=== PATIENT | male | born 1950 | race Hispanic/Latino ===

== ENCOUNTER 2024-05-31 08:12 | Emergency (ER) | payer SELFPAY ==
[2024-05-31 08:16] VITALS: BP 203/92
--- NOTE | 2024-05-31 09:06 | ED.GENMED ---
History of Present Illness
General
Chief Complaint: Cold/Flu/URI Symptoms
Source: patient
Time Seen by Provider: 05/31/24 08:46
History of Present Illness
History of Present Illness:
73yoM with a history of hypertension not compliant with medication presenting for evaluation of flu-like symptoms x 1 day. Patient is Wallisian speaking and history obtained with the assistance of an skiff operator. He reports subjective fevers, chills,
and generalized body aches. He also reports difficulty urinating and states he is vomiting frequently in small amounts and does not feel like he completely voids. He also endorses nausea but denies vomiting. Additionally, he reports lower back and
abdominal discomfort. He was last seen in the ED in 2021 for a UTI.
Past History
Past History
ED Past Medical History: HTN and Other ( hernia, UTI, Headache, Renal calculus, BPH with urinary retention); Negative Asthma, Hypercholesterolemia or NIDDM
ED Past Surgical History: Urological (Right inguinal hernia repair and partial prostatectomy)
Social History
Tobacco: Non-smoker
Alcohol: None
Drug: None
Personal:
Living: with family
Employment: Not employed
Family History
Family History: Other (Noncontributory)
Phy Exam
General Physical Exam
General Presentation: well appearing and no apparent distress
General age: appears stated age
General Skin: warm and dry
General Habitus: elderly
General Mental: alert
General Hydration: appears well hydrated
ENT Exam
ENT Exam: pharynx normal and neck supple
Cardiovascular Exam
Cardiovascular Exam: regular rate/rhythm and no murmur
Pulmonary Exam
Pulmonary Exam: lungs clear, no respiratory distress, no crackles and no wheezing
Gastrointestinal Exam
Gastrointestinal Exam: non tender, soft and non distended
Skin Exam
Skin Exam: normal color and warm/dry
Psychiatric Exam
Psychiatric Exam: normal mood/affect
Course
Orders/Labs/Results
Orders:
Orders
05/31/24 09:06
CT Abd/pelvis W Iv Cont Urgent
Comment:
Reason For Exam: Lower abd/back pain, urinary symptoms, fever
0.9% Sodium Chloride 500 ml [Nss] 500 ml IV BOLUS
CR Chest - 2 Views Urgent
Comment:
Reason For Exam: Fever
05/31/24 09:11
COVID-19 Antigen Urgent
Source: Nasal Swab
Complete Blood Count/With Diff Urgent
Comprehensive Metabolic Panel Urgent
Lactate Level [Lactic Acid] Urgent
05/31/24 11:42
Urinalysis Reflex To Culture Urgent
Date Specimen was Collected: 05/31/24
Time Specimen was Collected: 11:41
Urine Culture Urgent
TITA Source: U
Specimen Description:
Date Specimen was Collected: 05/31/24
Time Specimen was Collected: 11:41
Comment: Add on per Gabriela Stahlilton
05/31/24 12:38
Add On - Microbiology Urgent
Tests Added?: Urine culture
05/31/24 12:40
Cefdinir [Omnicef] 300 mg PO NOW STA
Abnormal Lab Results
05/31/24
09:11
Hgb 12.4 L g/dL
(13.0-18.0)
Hct 38.0 L %
(39.0-52.0)
MCV 75.8 L fL
(80.0-94.0)
MCH 24.8 L pg
(27.0-31.0)
MCHC 32.6 L g/dL
(33.0-37.0)
MPV 11.4 H fL
(7.4-10.4)
Absolute Lymphs (auto) 0.6 L 10^3/uL
(1.2-3.4)
Absolute Monos (auto) 0.8 H 10^3/uL
(0.1-0.6)
Neutrophils % 78.3 H %
(42.2-75.2)
Lymphocytes % 8.8 L %
(20.5-51.1)
Monocytes % 11.3 H %
(1.7-9.3)
Glucose 101 H mg/dl
(70-99)
05/31/24 09:11
05/31/24 09:11
Vital Signs
Initial and Last Documented VS:
Initial Vital Signs
Temp Pulse Resp BP Pulse Ox
100.2 F 79 16 203/92 98
05/31/24 08:16 05/31/24 08:16 05/31/24 08:16 05/31/24 08:16 05/31/24 08:16
Last Documented Vital Signs
Temp Pulse Resp BP Pulse Ox
100.2 F 72 18 184/80 97
05/31/24 08:16 05/31/24 12:49 05/31/24 12:49 05/31/24 12:49 05/31/24 12:49
MDM/Problems Addressed
Differential Diagnosis Includes:
73yoM here with flu-like symptoms. C/o body aches, subjective fevers, difficulty urinating. Temperature 100.2 on arrival. Blood pressure 203/92. He is asymptomatic from this perspective. He admits to stopping his antihypertensive medications
several months ago. Remainder of vitals unremarkable. He is acutely nontoxic appearing. Exam is reassuring. Differential diagnosis includes but is not limited to: UTI, pyelonephritis, sepsis, intra-abdominal infection, viral illness
Initial ED plan: Check CBC, CMP, lactate, UA, COVID swab, chest x-ray, and CT abdomen. IV fluid bolus.
*Critical Care Note
Total Time (30-74mins, 75-104mins- exclusive of procedures): Not Applicable
Update Note
Update Note:
Labs overall unremarkable. White count and lactate are normal. Chest x-ray is clear and COVID-negative. CT abdomen shows evidence of cystitis as well as gastritis. Upon questioning, patient denies any symptoms of GERD. Surprisingly, UA is bland
without any overt evidence of infection. Given low-grade temperature, urinary symptoms, and cystitis on imaging, will cover with antibiotics. Urine culture added and he was started on a course of cefdinir. BP improved on reassessment. Patient was
given a 1 month refill of his lisinopril. Advised close PCP follow-up and ED return precautions discussed. Patient expressed understanding and is agreeable to plan. Patient discharged in stable condition.
ED Attending Note
-
Portions of this chart may have been created with voice recognition software.� Occasional wrong word or��sound alike� substitutions may have occurred due to the inherent limitations of voice recognition software.
Discharge Plan
Departure
Patient Disposition: Home (Routine Discharge)
Date of Disposition: 05/31/24
Time of Disposition: 12:38
Patient with high blood pressure during this ER visit?: Yes
Discharge Problem:
Cystitis, Hypertension
Instructions: Urinary Tract Infection, Adult ED
Prescriptions:
New
cefdinir 300 mg capsule
300 mg PO BID Qty: 13 0RF
lisinopril 10 mg tablet
10 mg PO DAILY Qty: 30 0RF
No Action
lisinopril 10 mg Tablet
10 mg PO DAILY
ibuprofen [Advil] 200 mg Tablet
600 mg PO Q6H PRN (Reason: pain)
acetaminophen [acetaminophen] 325 mg tablet
650 mg PO Q6HPRN PRN (Reason: mild pain) Qty: 14 0RF
ibuprofen 200 mg tablet
400 - 600 mg PO Q6HPRN PRN (Reason: moderate pain) Qty: 1 0RF
oxycodone 5 mg tablet
5 mg PO Q6HPRN PRN (Reason: breakthrough/severe pain) Qty: 8 0RF
Referrals:
[facility] [Provider Group]
UNKNOWN - PT DOES,NOT KNOW [Family Provider] -
Activity Restrictions/Additional Instructions:
Take antibiotics as prescribed. Drink plenty of fluids and rest. Restart lisinopril for your blood pressure.
Please follow-up with your family doctor. Return to the ER with any worsening symptoms.
Interventions
Interventions:
*Risk Screen - Suicide Last Done: 05/31/24 09:22
*Neglect/Abuse Screening Last Done: 05/31/24 09:22
*Nursing Disposition Last Done: 05/31/24 12:54
ED- Pulmonary Assessment Last Done: 05/31/24 09:22
Discharge Date and Time
Discharge Date/Time: 05/31/24 12:55
Print Language: AZERI
[2024-05-31 09:18] VITALS: BP 178/78; BMI 29.2
[2024-05-31] MEDS: NSS 500 IV (09:30)
[2024-05-31 09:41] LABS: ALT (SGPT) 27 U/L (0-50); AST (SGOT) 26 U/L (17-59); Albumin 3.9 g/dl (3.5-5.0); Alkaline Phosphatase 122 U/L (38-126); Blood Urea Nitrogen 16 mg/dl (9-20); Carbon Dioxide 26 mmol/L (22-30); Chloride 105 mmol/L (98-107); Estimated Creatinine Clearance 76 ml/min; Glucose 101 mg/dl (70-99); Sodium 138 mmol/L (135-145); Total Bilirubin 0.4 mg/dl (0.2-1.3); Total Protein 6.6 g/dl (6.3-8.2); eGFR > 60.00
[2024-05-31 09:49] LABS: COVID-19 Antigen Negative (Negative)
[2024-05-31 11:14] LABS: % Basophils 0.4 % (0-2); % Eosinophils 0.9 % (0-6); % Immature Granulocytes 0.3 % (0-0.5); % Lymphocytes 8.8 % (20.5-51.1); % Monocytes 11.3 % (1.7-9.3); % Neutrophils 78.3 % (42.2-75.2); Absolute Eosinophils 0.1 10^3/uL (0-0.7); Absolute Lymphocytes 0.6 10^3/uL (1.2-3.4); Absolute Monocytes 0.8 10^3/uL (0.1-0.6); Absolute Neutrophils 5.3 10^3/uL (1.4-6.5); Hemoglobin 12.4 g/dL (13.0-18.0); Mean Corp Hgb Conc. 32.6 g/dL (33.0-37.0); Mean Corpuscular Hgb 24.8 pg (27.0-31.0); Mean Corpuscular Volume 75.8 fL (80.0-94.0); Mean Platelet Volume 11.4 fL (7.4-10.4); Nucleated Red Blood Cells % 0 % (-); Platelet Count 189 10^3/uL (130-400); Red Blood Cell Count 5.01 10^6/uL (4.70-6.10); Red Cell Dist. Width 13.7 % (11.5-14.5); White Blood Cell Count 6.7 10^3/uL (4.8-10.8)
[2024-05-31 11:52] LABS: Urine Albumin Negative (Neg - Trace); Urine Bilirubin Negative (Negative); Urine Character Clear (Clear); Urine Color Straw; Urine Glucose Negative (Negative); Urine Ketone Negative (Negative); Urine Leukocyte Negative (Negative); Urine Nitrite Negative (Negative); Urine Occult Blood Negative (Negative); Urine Urobilinogen Negative (Neg - 1+)
[2024-05-31] MEDS: OMNICEF 300 MG PO (12:48)
[2024-05-31 12:49] VITALS: BP 184/80
== END 2024-05-31 12:55 | disposition home or self-care (01) ==
LOC: EMR 08:12
PROVIDERS: Physician Assistant; EMERGENCY PHYSICIAN Emergency Medicine
DX: N30.90 Cystitis, unspecified without hematuria (principal); I10 Essential (primary) hypertension; Z91.148 Patient's other noncompliance with medication regimen for other reason
CPT/HCPCS: 99285; 96360; 71046; 74177; 80053; 81003; 83605; 85025; 87077; 87086; 87186; 87811; Q9967

== ENCOUNTER → 2024-06-01 14:27 | Outpatient (REF) | payer OTHER, SELFPAY | LOC: CLINIC 14:27 | PROVIDERS: ATTENDING PHYSICIAN Nurse Practitioner Adult Health | DX: K29.70 Gastritis, unspecified, without bleeding (principal) | CPT/HCPCS: 83013 ==

== ENCOUNTER 2025-05-04 10:05 | Emergency (ER) | payer SELFPAY ==
[2025-05-04 10:09] VITALS: BP 155/82
--- NOTE | 2025-05-04 10:55 | ED.GENMED ---
History of Present Illness
General
Chief Complaint: Abdominal Symptoms
Time Seen by Provider: 05/04/25 10:29
History of Present Illness
History of Present Illness:
Patient presents to the emergency department with abdominal pain radiating to right shoulder. Symptoms have been present for 3 days. Symptoms come and go. Pain radiates across upper abdomen. Associated with nausea but no vomiting. Associated
with some chills but no fever. Mild watery diarrhea.
Past History
Past History
ED Past Medical History: HTN and Other ( hernia, UTI, Headache, Renal calculus, BPH with urinary retention); Negative Asthma, Hypercholesterolemia or NIDDM
ED Past Surgical History: Urological (Right inguinal hernia repair and partial prostatectomy)
Social History
Tobacco: Non-smoker
Alcohol: None
Drug: None
Personal:
Living: with family
Employment: Not employed
Family History
Family History: Other (Noncontributory)
Phy Exam
Physical Exam
Physical Exam:
GENERAL APPEARANCE: NAD, well developed/ well nourished
EYES lids/conjunctiva normal
EARS/NOSE/THROAT Mucous membranes moist, uvula midline without oral pharyngeal erythema, exudate or swelling
HEAD/NECK normocephalic atraumatic, neck is supple.
RESPIRATORY respiratory effort normal, speaks in full sentences, no accessory muscle use. Lungs clear to auscultation without rhonchi, wheezes, rales
CARDIAC Regular rate and rhythm, no edema.
ABDOMINAL soft, nondistended. Mild tenderness across his upper abdomen. There are prior surgical scars on his abdomen from hernia repair
MUSCLES/EXTREMITIES No abnormal range of motion, no swelling.
SKIN Warm, pink and dry. No rashes
NEUROLOGICAL Speech is clear and appropriate. Normal level of consciousness. 5/5 strength in all extremities.
PSYCH Normal mood and affect. Judgement/competence is appropriate
Course
Orders/Labs/Results
Orders:
Orders
05/04/25 10:06
ECG [Electrocardiogram (*1)] Urgent
Reason for Study: Hypertension, Benign
EKG- Treatment ONCE
05/04/25 10:53
HYDROmorphone [Dilaudid] 0.5 mg IV NOW STA
Ondansetron Injectable [Zofran] 4 mg IV NOW STA
05/04/25 10:54
Electrocardiogram (*1) Urgent
Reason for Study: Abdominal Pain
CT Abd/Pel (IV only)-DH only Urgent
Comment:
Reason For Exam: abdominal pain
05/04/25 11:10
Complete Blood Count/With Diff Urgent
Comprehensive Metabolic Panel Urgent
Lipase Urgent
Troponin I Urgent
Abnormal Lab Results
05/04/25
11:10
WBC 3.9 L 10^3/uL
(4.8-10.8)
MCV 78.8 L fL
(80.0-94.0)
MCH 26.3 L pg
(27.0-31.0)
MPV 11.1 H fL
(7.4-10.4)
Absolute Lymphs (auto) 1.0 L 10^3/uL
(1.2-3.4)
Monocytes % 13.0 H %
(1.7-9.3)
Chloride 111 H mmol/L
(98-107)
ALT 59 H U/L
(0-50)
05/04/25 11:10
05/04/25 11:10
Vital Signs
Initial and Last Documented VS:
Initial Vital Signs
Temp Pulse Resp BP Pulse Ox
98.5 F 62 16 155/82 99
05/04/25 10:09 05/04/25 10:09 05/04/25 10:09 05/04/25 10:09 05/04/25 10:09
Last Documented Vital Signs
Temp Pulse Resp BP Pulse Ox
98.5 F 56 16 160/81 97
05/04/25 10:09 05/04/25 12:23 05/04/25 12:23 05/04/25 13:00 05/04/25 13:30
*Pulse Oximetry
SaO2: 95
Oxygen Mode of Delivery: Room air
*Critical Care Note
Total Time (30-74mins, 75-104mins- exclusive of procedures): Not Applicable
ED Attending Note
ED Attending Note
ED Attending Note:
Patient presents with upper abdominal pain radiating to right shoulder over the past 3 days with chills and nausea. He is well-appearing at this time and has mild tenderness in his upper abdomen. Will CT his abdomen and rule out intra-abdominal
emergencies as well as cardiac ischemia, pancreatitis, pneumonia.
Patients workup has been reassuring. Bladder wall thickening noted on CT scan. Patient denies any urinary symptoms - this likely represents a chronic finding. He is feeling better appears well at this time. Do not feel further emergent workup is
needed, however I urged him to follow up with his primary doctor in the next few days for recheck. Will start on ppi for possible gastritis given the upper abdominal pain with nausea.
-
Portions of this chart may have been created with voice recognition software.� Occasional wrong word or��sound alike� substitutions may have occurred due to the inherent limitations of voice recognition software.
Discharge Plan
Departure
Patient Disposition: Home (Routine Discharge)
Date of Disposition: 05/04/25
Time of Disposition: 13:13
Patient with high blood pressure during this ER visit?: Yes
Discharge Problem:
Abdominal pain
Instructions: Gastritis
Prescriptions:
New
pantoprazole 40 mg tablet,delayed release (DR/EC)
40 mg PO DAILY Qty: 30 0RF
No Action
lisinopril 10 mg Tablet
10 mg PO DAILY
ibuprofen [Advil] 200 mg Tablet
600 mg PO Q6H PRN (Reason: pain)
acetaminophen [acetaminophen] 325 mg tablet
650 mg PO Q6HPRN PRN (Reason: mild pain) Qty: 14 0RF
ibuprofen 200 mg tablet
400 - 600 mg PO Q6HPRN PRN (Reason: moderate pain) Qty: 1 0RF
oxycodone 5 mg tablet
5 mg PO Q6HPRN PRN (Reason: breakthrough/severe pain) Qty: 8 0RF
cefdinir 300 mg capsule
300 mg PO BID Qty: 13 0RF
lisinopril 10 mg tablet
10 mg PO DAILY Qty: 30 0RF
Activity Restrictions/Additional Instructions:
Evite jakub medicamentos tiki el ibuprofeno, ya que pueden irritarle el est�bailey. Inicie el tratamiento con pantoprazol seg�n lo prescrito. Acuda a siegel m�dico en los pr�ximos d�as para lucille revisi�n. Si presenta s�ntomas nuevos o que empeoran, acuda a
urgencias.
Please avoid taking medicine like ibuprofen as it may be irritating your stomach. Please start the pantoprazole as prescribed. Follow up with your doctor in the next few days for a recheck. Return to the ER with new or worsening symptoms.
Interventions
Interventions:
*Risk Screen - Suicide Last Done: 05/04/25 10:38
*General Assessment Last Done: 05/04/25 13:35
*Neglect/Abuse Screening Last Done: 05/04/25 10:38
*ED- Fall Risk Assessment Last Done: 05/04/25 11:13
*Nursing Disposition Last Done: 05/04/25 13:35
ZE-Krhkqm-Soldzcjpod Assessment Last Done: 05/04/25 11:13
Discharge Date and Time
Discharge Date/Time: 05/04/25 13:36
Print Language: CAMEROONIAN
[2025-05-04] MEDS: ZOFRAN 4 MG IV (11:09)
[2025-05-04] MEDS: DILAUDID 0.5 MG IV (11:09)
[2025-05-04 11:10] VITALS: BP 153/71
[2025-05-04 11:28] LABS: % Basophils 0.5 % (0-2); % Eosinophils 1.8 % (0-6); % Immature Granulocytes 0.3 % (0-0.5); % Lymphocytes 26.8 % (20.5-51.1); % Neutrophils 57.6 % (42.2-75.2); Absolute Eosinophils 0.1 10^3/uL (0-0.7); Absolute Monocytes 0.5 10^3/uL (0.1-0.6); Absolute Neutrophils 2.2 10^3/uL (1.4-6.5); Hematocrit 40.1 % (39.0-52.0); Hemoglobin 13.4 g/dL (13.0-18.0); Mean Corp Hgb Conc. 33.4 g/dL (33.0-37.0); Mean Corpuscular Hgb 26.3 pg (27.0-31.0); Mean Corpuscular Volume 78.8 fL (80.0-94.0); Mean Platelet Volume 11.1 fL (7.4-10.4); Nucleated Red Blood Cells % 0 % (-); Platelet Count 181 10^3/uL (130-400); Red Blood Cell Count 5.09 10^6/uL (4.70-6.10); Red Cell Dist. Width 13.1 % (11.5-14.5); White Blood Cell Count 3.9 10^3/uL (4.8-10.8)
[2025-05-04 11:30] VITALS: BP 185/81
[2025-05-04 11:43] LABS: ALT (SGPT) 59 U/L (0-50); AST (SGOT) 38 U/L (17-59); Albumin 3.6 g/dl (3.5-5.0); Alkaline Phosphatase 115 U/L (38-126); Blood Urea Nitrogen 19 mg/dl (9-20); Calcium 8.4 mg/dl (8.4-10.2); Carbon Dioxide 24 mmol/L (22-30); Chloride 111 mmol/L (98-107); Glucose 96 mg/dl (70-99); Lipase 121 U/L (23-300); Sodium 141 mmol/L (135-145); Total Bilirubin 0.3 mg/dl (0.2-1.3); Total Protein 6.4 g/dl (6.3-8.2); eGFR > 60.00
[2025-05-04 11:50] LABS: Troponin I < 0.012 ng/ml
[2025-05-04 12:00] VITALS: BP 165/70
[2025-05-04 12:51] VITALS: BP 155/72
[2025-05-04 13:00] VITALS: BP 160/81
== END 2025-05-04 13:36 | disposition home or self-care (01) ==
LOC: EMR 10:05
PROVIDERS: EMERGENCY PHYSICIAN Emergency Medicine
DX: R10.10 Upper abdominal pain, unspecified (principal); R11.0 Nausea; M25.511 Pain in right shoulder; I10 Essential (primary) hypertension; Z87.442 Personal history of urinary calculi
CPT/HCPCS: 96374; 96375; 99284; 74177; 80053; 83690; 84484; 85025; 93005; Q9967

== ENCOUNTER → 2025-06-04 08:10 | Outpatient (REF) | payer OTHER, SELFPAY ==
[2025-06-04 10:01] LABS: Glycohemoglobin (HgbA1c) 5.9 % (4.0-5.6)
[2025-06-04 10:12] LABS: ALT (SGPT) 22 U/L (0-50); AST (SGOT) 23 U/L (17-59); Albumin 3.9 g/dl (3.5-5.0); Alkaline Phosphatase 104 U/L (38-126); Blood Urea Nitrogen 22 mg/dl (9-20); Calcium 8.7 mg/dl (8.4-10.2); Carbon Dioxide 26 mmol/L (22-30); Chloride 109 mmol/L (98-107); Glucose 97 mg/dl (70-99); HDL Cholesterol 48 mg/dl; LDL Cholesterol, Calculated 173 mg/dl; Potassium 4.0 mmol/L (3.5-5.1); Sodium 138 mmol/L (135-145); Total Protein 6.7 g/dl (6.3-8.2); Very Low Density Lipoprotein 21 mg/dl (0-30); eGFR > 60.00
== END ==
LOC: REG 08:10
PROVIDERS: ATTENDING PHYSICIAN Nurse Practitioner Adult Health
DX: R73.03 Prediabetes (principal); R97.20 Elevated prostate specific antigen [PSA]; Z00.00 Encounter for general adult medical examination without abnormal findings; A04.8 Other specified bacterial intestinal infections
CPT/HCPCS: 36415; 80053; 80061; 83013; 83036; 84153; 84154; 84443